=== PATIENT | female | born 1985 | race Caucasian/White ===

== ENCOUNTER 2020-02-21 13:12 | Emergency (ER) | payer MEDICAID ==
--- NOTE | 2020-02-21 13:48 | ER Document Report ---
ED Medical Screen (RME) - General Chief Complaint: Flank Pain Stated Complaint: BACK PAIN Time Seen by Provider: 02/21/20 13:47 Information source: Patient Notes: 34-year-old female presented to ED for complaint of left flank pain came around to the left lower abdomen. She is never had a stone in her life. She states it started on Friday and is gotten worse. Past medical history is negative for stone. Past menstrual cycle was 04 February smokes 1/2 pack. I have greeted and performed a rapid initial assessment of this patient. A comprehensive ED assessment and evaluation of the patient, analysis of test results and completion of medical decision making process will be conducted by an additional ED providers. TRAVEL OUTSIDE OF THE [place] IN LAST 30 DAYS: No - Related Data Allergies/Adverse Reactions: No Known Allergies Allergy (Verified 12/03/15 22:07) Past Medical History - Past Medical History Cardiac Medical History: Reports: Hx Hypertension - induced/preeclampsia - Immunizations Hx Diphtheria, Pertussis, Tetanus Vaccination: Yes Physical Exam - Vital signs Vitals: Temp Pulse BP Pulse Ox 98.6 F 76 113/65 96 02/21/20 13:28 02/21/20 13:28 02/21/20 13:28 02/21/20 13:28 Course - Vital Signs Vital signs: Temp Pulse Resp BP Pulse Ox 98.6 F 76 113/65 96 02/21/20 13:45 02/21/20 13:28 02/21/20 13:28 02/21/20 13:28 Doctor's Discharge - Discharge Referrals: BHUMIKA CHEEMA MD [Primary Care Provider] - Follow up as needed
[2020-02-21 14:54] LABS: ABSOLUTE BASOPHILS # (AUTO) 0.2 10^3/uL (0.0-0.2); ABSOLUTE EOSINOPHILS # (AUTO) 0.3 10^3/uL (0.0-0.6); ABSOLUTE LYMPHOCYTES (AUTO) 2.1 10^3/uL (0.5-4.7); ABSOLUTE MONOCYTES (AUTO) 0.7 10^3/uL (0.1-1.4); ABSOLUTE NEUT (AUTO) 10.3 10^3/uL (1.7-8.2); BASOPHILS % (AUTO) 1.2 % (0-2); EOSINOPHILS % (AUTO) 1.9 % (0-6); HEMATOCRIT 38.9 % (36.0-47.0); HEMOGLOBIN 13.5 g/dL (12.0-15.5); LYMPHOCYTES % (AUTO) 15.7 % (13-45); MEAN CORPUSCULAR HGB CONC 34.7 g/dL (32.0-36.0); MEAN CORPUSCULAR VOLUME 92 fl (80-97); MONOCYTES % (AUTO) 5.2 % (3-13); PLATELET COUNT 275 10^3/uL (150-450); RED BLOOD COUNT 4.22 10^6/uL (3.72-5.28); TOTAL CELLS COUNTED % (AUTO) 100 %; WHITE BLOOD COUNT 13.5 10^3/uL (4.0-10.5)
[2020-02-21 15:01] LABS: APPEARANCE,URINE CLEAR; BILIRUBIN,URINE NEGATIVE (NEGATIVE); GLUCOSE, URINE NEGATIVE (NEGATIVE); KETONES,URINE NEGATIVE (NEGATIVE); LEUKOCYTE ESTERASE,URINE NEGATIVE (NEGATIVE); NITRITE,URINE POSITIVE (NEGATIVE); PROTEIN,URINE 100 mg/dL (NEGATIVE); URINE SPECIFIC GRAVITY 1.034
[2020-02-21 15:02] LABS: COLOR,URINE ORANGE
[2020-02-21 15:12] LABS: ALBUMIN 4.4 g/dL (3.5-5.0); ALKALINE PHOSPHATASE 112 U/L (38-126); ANION GAP 9 (5-19); ASPARTATE AMINO TRANSFERASE 23 U/L (14-36); BILIRUBIN,TOTAL 0.6 mg/dL (0.2-1.3); BLOOD UREA NITROGEN 12 mg/dL (7-20); CALCIUM 9.7 mg/dL (8.4-10.2); CARBON DIOXIDE 18 mmol/L (22-30); CHLORIDE 111 mmol/L (98-107); GLUCOSE 96 mg/dL (75-110); TOTAL PROTEIN 7.5 g/dL (6.3-8.2)
--- NOTE | 2020-02-21 15:23 | ER Document Report ---
ED General - General Chief Complaint: Flank Pain Stated Complaint: BACK PAIN Time Seen by Provider: 02/21/20 13:47 Primary Care Provider: BHUMIKA CHEEMA MD [Primary Care Provider] - Follow up as needed Mode of Arrival: Ambulatory Information source: Patient Notes: 34-year-old healthy female presents emergency department with complaints of left low back pain radiating to her left side on Friday night and then on Friday night. She reports the pain comes and goes. She reports she is taking Motrin Azo and Tylenol for the pain. She reports it is helped but not taken away the pain. She reports she has had some nausea but no fever vomiting or diarrhea. She reports urinary frequency increased but has been increased her p.o. intake. She reports decreased appetite. Reports last menstrual period February 04. Denies history of kidney stones. Denies pain with void. Denies vaginal discharge. TRAVEL OUTSIDE OF THE [place] IN LAST 30 DAYS: No - HPI Onset: Other - Friday Onset/Duration: Waxing and waning Quality of pain: Achy Associated symptoms: Nausea Exacerbated by: Denies Relieved by: Denies Similar symptoms previously: No Recently seen / treated by doctor: No - Related Data Allergies/Adverse Reactions: No Known Allergies Allergy (Verified 12/03/15 22:07) Past Medical History - General Information source: Patient Last Menstrual Period: 02/05/2020 - Social History Smoking Status: Current Every Day Smoker Cigarette use (# per day): Yes Frequency of alcohol use: None Drug Abuse: None Occupation: Homemaker Lives with: Family Family History: Reviewed & Not Pertinent Patient has suicidal ideation: No Patient has homicidal ideation: No - Past Medical History Cardiac Medical History: Reports: Hx Hypertension - induced/preeclampsia Surgical Hx: Negative - Immunizations Hx Diphtheria, Pertussis, Tetanus Vaccination: Yes Review of Systems - Review of Systems Notes: Review HPI for review of systems., All other systems negative Physical Exam - Vital signs Vitals: Temp Pulse BP Pulse Ox 98.6 F 76 113/65 96 02/21/20 13:28 02/21/20 13:28 02/21/20 13:28 02/21/20 13:28 - General General appearance: Appears well, Alert In distress: None - HEENT Head: Normocephalic, Atraumatic Eyes: Normal Conjunctiva: Normal Extraocular movements intact: Yes Eyelashes: Normal Pupils: PERRL Neck: Normal, Supple. No: Lymphadenopathy - Respiratory Respiratory status: No respiratory distress Chest status: Nontender Breath sounds: Normal Chest palpation: Normal - Cardiovascular Rhythm: Regular Heart sounds: Normal auscultation Murmur: No - Abdominal Inspection: Normal Distension: No distension Bowel sounds: Normal Tenderness: Nontender Organomegaly: No organomegaly - Back Back: Normal, Nontender - Patient reports left-sided low back pain that comes and goes. Reports no pain at this time. No: CVA tenderness - Extremities General upper extremity: Normal ROM General lower extremity: Normal ROM - Neurological Neuro grossly intact: Yes Cognition: Normal Orientation: AAOx4 [place] Coma Scale Eye Opening: Spontaneous [place] Coma Scale Verbal: Oriented [place] Coma Scale Motor: Obeys Commands [place] Coma Scale Total: 15 Speech: Normal - Psychological Associated symptoms: Normal affect, Normal mood - Skin Skin Temperature: Warm Skin Moisture: Dry Skin Color: Normal Course - Re-evaluation Re-evalutation: 02/21/20 15:39 Patient reports she is feeling better. Pyridium ordered. Patient seems dry. Creatinine 1.42 chloride 111 with carbon dioxide 18. Positive urine nitrite. Slight leukocytosis at 13.5. P.o. fluids ordered. Patient was instructed on labs the need to increase her p.o. fluids. She was provided with 3 cups of water. She is not vomiting, drinking the water without problems. She was instructed on her labs renal function. She was instructed down the importance of pushing fluids. She was instructed on Macrobid and Pyridium. She was also instructed on need for urine recheck within 1 week. Patient was instructed on the importance of monitoring her temperature return for worsening symptoms fever concerns she verbalized understanding to all instructions. Laboratory 02/21/20 02/21/20 02/21/20 14:30 14:30 14:30 WBC 13.5 H RBC 4.22 Hgb 13.5 Hct 38.9 MCV 92 MCH 32.0 MCHC 34.7 RDW 14.0 Plt Count 275 Lymph % (Auto) 15.7 [place] % (Auto) 5.2 Eos % (Auto) 1.9 Baso % (Auto) 1.2 Absolute Neuts (auto) 10.3 H Absolute Lymphs (auto) 2.1 Absolute Monos (auto) 0.7 Absolute Eos (auto) 0.3 Absolute Basos (auto) 0.2 Seg Neutrophils % 76.0 Sodium 138.0 Potassium 5.0 Chloride 111 H Carbon Dioxide 18 L Anion Gap 9 BUN 12 Creatinine 1.42 H Est GFR ( Amer) 51 L Est GFR (MDRD) Non-Af 42 L Glucose 96 Calcium 9.7 Total Bilirubin 0.6 Direct Bilirubin 0.0 Neonat Total Bilirubin Not Reportable Neonat Direct Bilirubin Not Reportable Neonat Indirect Bili Not Reportable AST 23 ALT 41 H Alkaline Phosphatase 112 Total Protein 7.5 Albumin 4.4 Lipase 30.5 Serum HCG, Qual NEGATIVE Urine Color Urine Appearance Urine pH Ur Specific [place] Urine Protein Urine Glucose (UA) Urine Ketones Urine Blood Urine Nitrite Urine Bilirubin Urine Urobilinogen Ur Leukocyte Esterase Urine WBC (Auto) Urine RBC (Auto) Squamous Epi Cells Auto Urine Mucus (Auto) Urine Sodium Urine Ascorbic Acid 02/21/20 02/21/20 14:30 14:30 WBC RBC Hgb Hct MCV MCH MCHC RDW Plt Count Lymph % (Auto) [place] % (Auto) Eos % (Auto) Baso % (Auto) Absolute Neuts (auto) Absolute Lymphs (auto) Absolute Monos (auto) Absolute Eos (auto) Absolute Basos (auto) Seg Neutrophils % Sodium Potassium Chloride Carbon Dioxide Anion Gap BUN Creatinine Est GFR ( Amer) Est GFR (MDRD) Non-Af Glucose Calcium Total Bilirubin Direct Bilirubin Neonat Total Bilirubin Neonat Direct Bilirubin Neonat Indirect Bili AST ALT Alkaline Phosphatase Total Protein Albumin Lipase Serum HCG, Qual Urine Color ORANGE Urine Appearance CLEAR Urine pH 5.0 Ur Specific [place] 1.034 Urine Protein 100 H Urine Glucose (UA) NEGATIVE Urine Ketones NEGATIVE Urine Blood MODERATE H Urine Nitrite POSITIVE H Urine Bilirubin NEGATIVE Urine Urobilinogen 4.0 H Ur Leukocyte Esterase NEGATIVE Urine WBC (Auto) 9 Urine RBC (Auto) 21 Squamous Epi Cells Auto 4 Urine Mucus (Auto) RARE Urine Sodium 136 H Urine Ascorbic Acid NEGATIVE 02/21/20 17:08 - Vital Signs Vital signs: Temp Pulse Resp BP Pulse Ox 98.4 F 77 18 115/62 98 02/21/20 15:48 02/21/20 15:48 02/21/20 15:48 02/21/20 15:48 02/21/20 15:48 - Laboratory Result Diagrams: 02/21/20 14:30 02/21/20 14:30 Laboratory results interpreted by me: 02/21/20 02/21/20 02/21/20 14:30 14:30 14:30 WBC 13.5 H Absolute Neuts (auto) 10.3 H Chloride 111 H Carbon Dioxide 18 L Creatinine 1.42 H Est GFR ( Amer) 51 L Est GFR (MDRD) Non-Af 42 L ALT 41 H Urine Protein 100 H Urine Blood MODERATE H Urine Nitrite POSITIVE H Urine Urobilinogen 4.0 H Urine Sodium 02/21/20 14:30 WBC Absolute Neuts (auto) Chloride Carbon Dioxide Creatinine Est GFR ( Amer) Est GFR (MDRD) Non-Af ALT Urine Protein Urine Blood Urine Nitrite Urine Urobilinogen Urine Sodium 136 H Discharge - Discharge Clinical Impression: Urinary tract infection Qualifiers: Urinary tract infection type: site unspecified Hematuria presence: with hem aturia Qualified Code(s): N39.0 - Urinary tract infection, site not specified Condition: Stable Disposition: HOME, SELF-CARE Instructions: Nitrofurantoin ([facility]), Urinary Anesthetic Agent ([facility]), Urinary Tract Infection ([facility]) Additional Instructions: *You have been evaluated for left low back pain, urinary frequency, UTI *Take medication as prescribed *Push fluids- THIS IS VERY IMPORTANT! You have not been drinking enough fluids *Follow up with your primary care provider within one week for recheck *Return to the emergency department for worsening symptoms, fever, increased pain, concerns Prescriptions: Nitrofurantoin Monohyd/M-Cryst [Macrobid 100 mg Capsule] 100 mg PO BID #20 cap Phenazopyridine HCl [Pyridium 200 mg Tablet] 200 mg PO TID #15 tablet Forms: Smoking Cessation Education Referrals: BHUMIKA CHEEMA MD [Primary Care Provider] - Follow up as needed
[2020-02-21] MEDS ORDERED: PHENAZOPYRIDINE HCL 200 MG TABLET PO ONE (15:24)
[2020-02-21] MEDS ORDERED: NITROFURANTOIN MONOHYD/M-CRYST 100 MG CAPSULE PO ONE (15:41)
[2020-02-21 16:01] VITALS: BP 115/62
== END 2020-02-21 16:11 | disposition home or self-care (01) ==
LOC: ER 13:12
DX: N39.0 Urinary tract infection, site not specified (principal); R10.9 Unspecified abdominal pain; M54.9 Dorsalgia, unspecified; M54.5 Low back pain; R11.0 Nausea; R35.0 Frequency of micturition; R63.0 Anorexia; F17.210 Nicotine dependence, cigarettes, uncomplicated; I10 Essential (primary) hypertension
CPT/HCPCS: 99284; 36415; 87086; 83690; 84703; 84300; 85025; 80053; 81001; J3490 ×2; J8499